=== PATIENT | female | born 1980 | race Caucasian/White ===

== ENCOUNTER → 2018-07-29 | Outpatient (CLI) | payer BC ==
[~2018-07-29] MED LIST: ALBU8.5H IH; ALPR-429 PO; L.AC1CAP6
[2018-07-29 16:49] LABS: PLATELET COUNT, AUTOMATED 338 K/uL (150-450)
--- NOTE | 2018-07-29 17:41 | RADIOLOGY IMAGING REPORT ---
FACILITY: [facility] PATIENT NAME: Victor Hugo Garnett : 1980 MR: [id number] V: [id number] EXAM DATE: ORDERING PHYSICIAN: MICHELLE FLOREZ TECHNOLOGIST[place] [facility] [place] Hugo Garn[place] : 1980 Visit/Account:[id number] Date of Sevice: 07/29/2018 Examination: CHEST PA AND LAT Comparison: None. History: Shortness of breath x1 week Findings: No consolidation, nodule, or definite evidence of acute peribronchial inflammation. No pneu mothorax, edema, or effusion. Cardiac and hilar contour size is within normal limits. Osseous structu res are intact. IMPRESSION: No evidence of acute cardiopulmonary disease. Report Dictated By: Marino Umanzor MD at 07/29/2018 5:22 PM Report E-Signed By: Marino Umanzor MD at 07/29/2018 5:36 PM WSN:[id number]
== END ==
LOC: LAB 16:25
PROVIDERS: ATTEND Nurse Practitioner Primary Care
DX: R06.02 Shortness of breath (principal)
CPT/HCPCS: 36415; 71046; 82040; 82247; 82310; 82374; 82435; 82565; 82947; 84075; 84132; 84155; 84295; 84450; 84460; 84520; 85025; 85379